=== PATIENT | male | born 1985 | race Caucasian/White ===

== ENCOUNTER 2017-04-22 14:12 | Emergency (ER) | payer OTHER ==
--- NOTE | 2017-04-22 14:34 | PDOC ---
Rapid Medical Evaluation Time Seen by Provider: 04/22/17 14:30 Medical Evaluation: Allergies Allergy/AdvReac Type Severity Reaction Status Date / Time No Known Allergies Allergy Verified 06/07/15 15:10 04/22/17 14:30 The patient presents with a chief complaint of: Hx of back pain, bulging discs. Slipped today and aggrevated back. No fall, head injury or LOC I have performed a brief in-person evaluation of this patient; Pertinent physical exam findings: Paraspinous spasm L and R around L 2-3 I have ordered the following: Nothing The patient will proceed to the ED for further evaluation.
[2017-04-22 14:36] VITALS: BP 148/96; PULSE 76; TEMP 98.7; BMI 25.0
[2017-04-22] MEDS ORDERED: KETOROLAC TROMETHAMINE 60 MG/2 ML VIAL IM ONE (15:09)
[2017-04-22] MEDS ORDERED: KETOROLAC TROMETHAMINE 60 MG/2 ML VIAL ONE (15:13)
--- NOTE | 2017-04-22 15:16 | PDOC ---
History of Present Illness - General Chief Complaint: Back Pain Stated Complaint: BACK PAIN Time Seen by Provider: 04/22/17 14:30 History Source: Patient Exam Limitations: No Limitations - History of Present Illness Initial Comments: 04/22/17 15:10 CHIEF COMPLAINT: [Lower back pain] HISTORY OF PRESENT ILLNESS:[31]-year-old [Male],[ History of bulging lumbar disk from a work related injury. 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 Was walking today and slipped on the ice, did not fall. Twisted previous injury, now with pain to bilateral lower back. Nonradiating pain, no neurosensory deficits, no bowel or bladder difficulty incontinence or urinary retention, no saddle anesthesia, no footdrop. No history of IVDU or history of cancer. ] REVIEW OF SYSTEMS: GENERAL: Afebrile, denies any weakness RESPIRATORY: No cough, wheezing, or hemoptysis. CARDIAC: No chest pain or shortness of breath MUSCULOSKELETAL: Pain to generalized lower back. No point tenderness. Pain worse on [right than left. ] SKIN : No erythema, no bruising, no deformity. GI/: Denies any abdominal pain, no urinary difficulty, incontinence or urinary retention. RECTAL: Denies any difficulty this A.m. NEUROLOGICAL: Denies any numbness or tingling. No neurosensory deficits. PHYSICAL EXAM: GENERAL: The patient is awake, alert, and fully oriented, in no acute distress. RESPIRATORY: Lungs clear bilaterally, no rhonchi wheezes or crackles CARDIAC: S1-S2 audible, no murmur rub or gallop MUSCULOSKELETAL: Pain to generalized lower back, nonradiating, no tingling or sensory deficit. Less than 2 second cap refill, +4 popliteal and pedal pulses. GI/: Abdomen soft, nontender, nondistended. No rebound tenderness. No masses palpable. MUSCULOSKELETAL: No spinal point tenderness. Bilateral lower lumbar paraspinal pain Normal reflexive and no deficits to sensation or strength. RECTAL: [Deferred patient with no neurological findings] SKIN: Warm, Dry, normal turgor, no erythema, no edema no bruising. Past History - Past Medical History Allergies/Adverse Reactions: Allergies Allergy/AdvReac Type Severity Reaction Status Date / Time No Known Allergies Allergy Verified 06/07/15 15:10 Home Medications: Ambulatory Orders Cyclobenzaprine HCl [Flexeril 10 mg] 10 mg PO BID PRN #20 tablet MDD 2 04/22/17 Methylprednisolone [Medrol Dose Aries] 4 mg PO ASDIR #21 tablet 04/22/17 COPD: No Other medical history: 3 bulging discs lumbar spine - Suicide/Smoking/Psychosocial Hx Smoking History: Never smoked Have you smoked in the past 12 months: No Number of Cigarettes Smoked Daily: 3 Information on smoking cessation initiated: No Hx Alcohol Use: No Drug/Substance Use Hx: No Substance Use Type: None *Physical Exam - Vital Signs Last Vital Signs Temp Pulse Resp BP Pulse Ox 98.7 F 76 20 148/96 98 04/22/17 14:33 04/22/17 14:33 04/22/17 14:33 04/22/17 14:33 04/22/17 14:33 Medical Decision Making - Medical Decision Making 04/22/17 15:13 A/P: Patient here for evaluation of lower back pain status post twisting back after slipping on ice. Patient with no radiating pain, no neurosensory deficits. Patient had previous injury to same reports pain is same from initial injury. I will give patient Toradol 60 mg IM x 1 while in ER. I have obtained an appointment for patient to see his orthopedist Bonifacio Duron at 8:30 tomorrow morning. I will discharge patient on a medrol dosepack and flexaril. I discussed the physical exam findings, ancillary test results and final diagnoses with the patient. I answered all of the patient's questions. The patient was satisfied with the care received and felt comfortable with the discharge plan and treatment plan. The patient will call to arrange follow-up and will return to the Emergency Department with any new, persistent or worsening symptoms. *DC/Admit/Observation/Transfer Diagnosis at time of Disposition: Back injury Qualifiers: Encounter type: initial encounter Qualified Code(s): S39.92XA - Unspecified injury of lower back, initial encounter - Discharge Dispostion Disposition: HOME Condition at time of disposition: Stable Admit: No - Prescriptions Prescriptions: Cyclobenzaprine HCl [Flexeril 10 mg] 10 mg PO BID PRN #20 tablet MDD 2 PRN Reason: Pain Methylprednisolone [Medrol Dose Aries] 4 mg PO ASDIR #21 tablet - Referrals Referrals: Emeterio Valdovinos MD [Staff Physician] - (8:30 tomorrow AM. ) - Patient Instructions Printed Discharge Instructions: Low Back Pain Additional Instructions: 1. Please return to the emergency department with any numbness, tingling, weakness, numbness or tingling to groin or legs, or loss of bowel or bladder function. 2. Use pain medication as ordered. 3. Please is to followup in the office of Dr. Valdovinos tomorrow am 4. Ice to lower back 5. Refrain from lifting anything above 10 pounds, until pain resolved. - Post Discharge Activity Forms/Work/School Notes: Back to Work
== END 2017-04-22 15:23 | disposition home or self-care (01) ==
LOC: JERFT 14:12
PROC: 3E0233Z Introduction of Anti-inflammatory into Muscle, Percutaneous Approach (ICD-10-PCS; principal; 2017-04-22)
DX: S39.82XA Other specified injuries of lower back, initial encounter (principal); W00.2XXA Other fall from one level to another due to ice and snow, initial encounter; Y93.01 Activity, walking, marching and hiking; Y92.89 Other specified places as the place of occurrence of the external cause; Y99.0 Civilian activity done for income or pay; Z87.39 Personal history of other diseases of the musculoskeletal system and connective tissue
CPT/HCPCS: 99281-25

== ENCOUNTER 2017-12-25 21:47 | Emergency (ER) | payer OTHER ==
[2017-12-25] MEDS ORDERED: METHOCARBAMOL 500 MG TABLET PO ONE (21:57)
[2017-12-25] MEDS ORDERED: KETOROLAC TROMETHAMINE 60 MG/2 ML VIAL IM ONE (21:57)
[2017-12-25 22:00] VITALS: BP 143/88; PULSE 63; TEMP 98.5; BMI 26.4
--- NOTE | 2017-12-25 22:03 | PDOC ---
History of Present Illness - General Chief Complaint: Back Pain Stated Complaint: WC - BACK INJURY Time Seen by Provider: 12/25/17 21:53 History Source: Patient Exam Limitations: No Limitations - History of Present Illness Initial Comments: 12/25/17 21:58 Patient is 32M with history of bulging discs in his back here today complaining of back pain. Patient works with [employer] and hurt his back during a lift today. Denies fevers, chills, nausea, vomiting. Denies tingling, leg weakness, incontinence/retention, IVDA, saddle anesthesia. Pain is in lower back bilaterally. Denies trauma. Past History - Past Medical History Allergies/Adverse Reactions: Allergies Allergy/AdvReac Type Severity Reaction Status Date / Time No Known Allergies Allergy Verified 06/07/15 15:10 Home Medications: Ambulatory Orders Cyclobenzaprine HCl [Flexeril 10 mg] 10 mg PO BID PRN #20 tablet MDD 2 04/22/17 Methylprednisolone [Medrol Dose Aries] 4 mg PO ASDIR #21 tablet 04/22/17 Methocarbamol [Robaxin -] 750 mg PO Q8H #21 tablet 12/25/17 COPD: No - Suicide/Smoking/Psychosocial Hx Smoking History: Never smoked Have you smoked in the past 12 months: No Number of Cigarettes Smoked Daily: 3 Hx Alcohol Use: No Drug/Substance Use Hx: No Substance Use Type: None Review of Systems - Review of Systems Comments:: 12/25/17 22:00 GENERAL/CONSTITUTIONAL: No fever or chills. No weakness. HEAD, EYES, EARS, NOSE AND THROAT: No change in vision. No ear pain or discharge. No sore throat. CARDIOVASCULAR: No chest pain or shortness of breath RESPIRATORY: No cough, wheezing, or hemoptysis. GASTROINTESTINAL: No nausea, vomiting, diarrhea or constipation. GENITOURINARY: No dysuria, frequency, or change in urination. MUSCULOSKELETAL: No joint or muscle swelling or pain. No neck pain +back pain. SKIN: No rash NEUROLOGIC: No headache, vertigo, loss of consciousness, or change in strength/ sensation. ENDOCRINE: No increased thirst. No abnormal weight change HEMATOLOGIC/LYMPHATIC: No anemia, easy bleeding, or history of blood clots. ALLERGIC/IMMUNOLOGIC: No hives or skin allergy. *Physical Exam - Physical Exam Comments: 12/25/17 22:00 GENERAL: Awake, alert, and fully oriented, in no acute distress, standing in room comfortably BACK: No midline tenderness, +paraspinal tenderness, no signs of trauma HEAD: No signs of trauma, normocephalic, atraumatic EYES: PERRLA, EOMI, sclera anicteric, conjunctiva clear ENT: Auricles normal inspection, hearing grossly normal, nares patent, oropharynx clear without exudates. Moist mucosa NECK: Normal ROM, supple, no lymphadenopathy, JVD, or masses LUNGS: No distress, speaks full sentences, clear to auscultation bilaterally HEART: Regular rate and rhythm, normal S1 and S2, no murmurs, rubs or gallops, peripheral pulses normal and equal bilaterally. ABDOMEN: Soft, nontender, normoactive bowel sounds. No guarding, no rebound. No masses EXTREMITIES: Normal inspection, Normal range of motion, no edema. No clubbing or cyanosis. NEUROLOGICAL: Cranial nerves II through XII grossly intact. Normal speech, normal gait, no focal sensorimotor deficits SKIN: Warm, Dry, normal turgor, no rashes or lesions noted. Medical Decision Making - Medical Decision Making 12/25/17 22:01 Patient is 32M with history of bulging discs in his back here today with back pain. Vitals normal and stable. No red flags. Will discharge with PCP follow up. *DC/Admit/Observation/Transfer Diagnosis at time of Disposition: Back pain - Discharge Dispostion Disposition: HOME Condition at time of disposition: Good Decision to Admit order: No - Prescriptions Prescriptions: Methocarbamol [Robaxin -] 750 mg PO Q8H #21 tablet - Referrals - Patient Instructions Printed Discharge Instructions: DI for Low Back Pain Additional Instructions: Please return if you have any new, worsening or concerning symptoms. Please follow up with your primary care doctor this week. - Post Discharge Activity
[2017-12-25] MEDS ORDERED: KETOROLAC TROMETHAMINE 60 MG/2 ML VIAL ONE (22:04)
[2017-12-25] MEDS ORDERED: METHOCARBAMOL 500 MG TABLET ONE (22:04)
--- NOTE | 2017-12-25 22:27 | PDOC ---
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 He is in the lower her spinal region of the lumbar region no fevers or chills no bowel or bladder incontinence pain is moderate worse with bending and walking did not take anything for pain prior to arrival patient has had a prior MRI for similar symptoms many years ago follows Dr. Valdovinos and has had prior physical therapy for this back pain - Physicial Exam PE: 12/25/17 22:24 Awake alert no acute distress lungs are clear bilaterally heart is regular without any murmurs rubs or gallops abdomen is soft and nontender there is no midline vertebral tenderness over the thoracic and lumbar region there is paraspinal lumbar muscle spasm. Lower extremity is 5 out of 5 for strength on hip flexion and extension knee flexion and extension sensation is intact bilateral lower extremities - Medical Decision Making 12/25/17 22:25 patient has low back strain no signs of neurologic compromise has a normal neurological exam we will treat with anti-inflammatories and muscle relaxers as needed told to follow up with Dr. verduzco in the patient's primary doctor given warning signs to seek repeat evaluation including numbness or weakness in the lower extremities or any bowel or bladder issues DC to home
== END 2017-12-25 22:13 | disposition home or self-care (01) ==
LOC: JER 21:47
PROC: 3E0233Z Introduction of Anti-inflammatory into Muscle, Percutaneous Approach (ICD-10-PCS; principal; 2017-12-25)
DX: M54.5 Low back pain (principal)
CPT/HCPCS: 99281-25

== ENCOUNTER 2019-04-23 21:30 | Emergency (ER) | payer OTHER ==
[2019-04-23 21:40] VITALS: BP 134/78; PULSE 74; TEMP 98.3; BMI 26.4
[2019-04-23] MEDS ORDERED: IBUPROFEN 600 MG TABLET (FP) PO ONE ×2 (22:28→22:35)
--- NOTE | 2019-04-23 22:31 | PDOC ---
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 He reported a slight jerking sensation anteriorly and up on his right shoulder. Patient reports after this incident he had a difficult time opening a door with his right hand and he noted that when he tried to scratch his lower back he had increased severe pain in his right anterior shoulder. He reports his pain is 6/10 describes it as a sharp tearing sensation. No recent travel or sick contacts. PAST MEDICAL HISTORY: Denies past medical history SURGICAL HISTORY: Denies ALLERGIES: No known drug allergies REVIEW OF SYSTEMS General/Constitutional: Denies fever or chills. Denies weakness, weight change. HEENT: Denies change in vision. Denies ear pain or discharge. Denies sore throat. Cardiovascular: Denies chest pain or shortness of breath. Respiratory: Denies cough, wheezing, or hemoptysis. Gastrointestinal: Denies nausea, vomiting, diarrhea or constipation. Denies rectal bleeding. Genitourinary: Denies dysuria, frequency, or change in urination. Musculoskeletal: See HPI Skin and breasts: Denies rash or easy bruising. Neurologic: Denies headache, vertigo, loss of consciousness, or loss of sensation. Psychiatric: Denies depression or anxiety. Endocrine: Denies increased thirst. Denies abnormal weight change. Hematologic/Lymphatic: Denies anemia, easy bleeding, or history of blood clots. Allergic/Immunologic: Denies hives or skin allergy. Denies latex allergy. PHYSICAL EXAM General Appearance: Well-appearing, appropriately dressed. No apparent distress , no intoxication. Musculoskeletal/Extremities: Normal inspection. FROM of all extremities, normal capillary refill. Pelvis Stable. No CVA tenderness. No tenderness to extremities, pedal edema, swelling, erythema or deformity. Integumentary: Appropriate color, dry, warm. No cyanosis, erythema, jaundice or rash Neurologic: science technicians II-XII intact. Fully oriented, alert. Appropriate mood/affect. Motor strength 5/5. No appreciable EOM palsy, facial droop or sensory deficit. Past History - Past Medical History Allergies/Adverse Reactions: Allergies Allergy/AdvReac Type Severity Reaction Status Date / Time No Known Allergies Allergy Verified 12/25/17 21:59 Home Medications: Ambulatory Orders Cyclobenzaprine HCl [Flexeril 10 mg] 10 mg PO BID PRN #20 tablet MDD 2 04/22/17 Methylprednisolone [Medrol Dose Aries] 4 mg PO ASDIR #21 tablet 04/22/17 Methocarbamol [Robaxin -] 750 mg PO Q8H #21 tablet 12/25/17 COPD: No - Psycho Social/Smoking Cessation Hx Smoking History: Never smoked Have you smoked in the past 12 months: No Number of Cigarettes Smoked Daily: 3 Hx Alcohol Use: No Drug/Substance Use Hx: No Substance Use Type: None *Physical Exam - Vital Signs Last Vital Signs Temp Pulse Resp BP Pulse Ox 98.3 F 74 19 134/78 98 04/23/19 21:37 04/23/19 21:37 04/23/19 21:37 04/23/19 21:37 04/23/19 21:37 Medical Decision Making - Medical Decision Making 04/23/19 23:04 A/P: 33-year-old male with right shoulder pain Full passive range of motion performed without difficulty. No bony tenderness, crepitus or step-off is noted to the bones of the right shoulder or upper arm. X-rays were discussed with the patient who reports he prefers not to have x-ray evaluation at this time. Patient reports he will follow-up with an orthopedic surgeon who can do an MRI and an x-ray in the office if needed for insurance reasons. Sling Motrin 600 mg orally now Discharge home Discharge - Discharge Information Problems reviewed: Yes Clinical Impression/Diagnosis: Shoulder pain Qualifiers: Chronicity: acute Laterality: right Qualified Code(s): M25.511 - Pain in right shoulder Condition: Stable Disposition: HOME - Admission No - Follow up/Referral Referrals: Matthew Crooks [Primary Care Provider] - Emeterio Valdovinos MD [Staff Physician] - - Patient Discharge Instructions Additional Instructions: You be given a referral for an orthopedist. Call to schedule appointment for reevaluation of your shoulder pain. Your emergency department visit is incomplete until you follow-up with your regular doctor. Take Tylenol 2-500 mg tablets every 6 hours as needed for pain. Take Motrin 3-200 mg tablets every 6 hours as needed for pain. These medications do not require a prescription as they are [id number]. Apply ice to your shoulder to help relieve pain. Do not leave ice on for more than 20 minutes at a time. Return to the emergency department for blurry vision, dizziness, vomiting or any new or worsening symptoms. Thank you very much for choosing us to provide your emergent health care needs. - Post Discharge Activity Work/Back to School Note: Back to Work
== END 2019-04-23 23:10 | disposition home or self-care (01) ==
LOC: JERFT 21:30
DX: S49.81XA Other specified injuries of right shoulder and upper arm, initial encounter (principal); M25.511 Pain in right shoulder; W17.89XA Other fall from one level to another, initial encounter; Y93.89 Activity, other specified; Y92.89 Other specified places as the place of occurrence of the external cause; Y99.0 Civilian activity done for income or pay
CPT/HCPCS: 99281-25

== ENCOUNTER 2022-11-01 15:44 | Emergency (ER) | payer OTHER ==
[2022-11-01 15:52] VITALS: BP 138/76; PULSE 100; RESP 19; TEMP 98.8; BMI 26.4
[2022-11-01] MEDS ORDERED: ACETAMINOPHEN 500 MG TABLET (FP) PO ONE (16:06)
[2022-11-01] MEDS ORDERED: KETOROLAC TROMETHAMINE 30 MG/1 ML VIAL IM ONE (16:06)
[2022-11-01] MEDS ORDERED: LIDOCAINE 5% TOPICAL PATCH TP ONE (16:07)
[2022-11-01] MEDS ORDERED: METHOCARBAMOL 500 MG TABLET PO ONE (16:07)
[2022-11-01] MEDS ORDERED: METHOCARBAMOL 500 MG TABLET ONE (16:13)
[2022-11-01] MEDS ORDERED: LIDOCAINE 5% TOPICAL PATCH ONE (16:13)
[2022-11-01] MEDS ORDERED: KETOROLAC TROMETHAMINE 30 MG/1 ML VIAL ONE (16:13)
[2022-11-01] MEDS ORDERED: ACETAMINOPHEN 500 MG TABLET (FP) ONE (16:14)
[2022-11-01] MEDS ORDERED: LIDOCAINE PATCH REMOVAL MC SCH (22:00)
== END 2022-11-01 16:41 | disposition home or self-care (01) ==
LOC: JER 15:44 → JERFT 15:44
PROC: 3E0233Z Introduction of Anti-inflammatory into Muscle, Percutaneous Approach (ICD-10-PCS; principal; 2022-11-01)
DX: M54.50 Low back pain, unspecified (principal)
CPT/HCPCS: 99284-25